=== PATIENT | male | born 1985 | race Caucasian/White ===

== ENCOUNTER 2017-07-26 20:53 | Emergency (ER) | payer OTHER ==
[~2017-07-26] VITALS: Ht 172.7 cm; Wt 97.1 kg
[2017-07-26 20:57] VITALS: BP_SYST 134
--- NOTE | 2017-07-26 21:22 | NUR ---
Patient to ER bed 06 to gown for evaluation. Side rails up.
[2017-07-26] MEDS ORDERED: NACL 0.9% 1,000 ML IV ONE (21:25)
--- NOTE | 2017-07-26 21:25 | NUR ---
Dr Wolf at bedside examining patient
[2017-07-26] MEDS ORDERED: methylPREDNISolone SOD SUCC/PF 62.5 MG/ML VIAL IVP ONE (21:30)
[2017-07-26] MEDS ORDERED: DIPHENHYDRAMINE INJ 50 MG/ML VIAL IVP ONE (21:30)
[2017-07-26] MEDS ORDERED: FAMOTIDINE PF 20 MG/2 ML VIAL IVP ONE (21:30)
[2017-07-26] MEDS ORDERED: EPINEPHrine JECT 1 MG/10 ML SYR SUBCUT ONE (21:30)
--- NOTE | 2017-07-26 21:30 | NUR ---
PT PRESENTS TO THE ED C/O REDNESS AND HIVES D/T ALLERGIC REACTION AFTER DINNER TONIGHT. PT STATES HE TRIED "JOSE SOUP" FOR THE FIRST TIME DURING BREAK AT WORK. 30 MIN LATER, HE DEVELOPED HIVES OVER HIS BODY. PT STATES HE FEELS ITCHY ALL OVER AND HIS EYES ARE BURNING. ERYTHEMA AND HIVES PRESENT ON FACE, CHEST, ARMS, LEGS, ABDOMEN. PT DENIES SOB, PAIN, N/V DAVID. SISTER AT BEDSIDE. NO OTHER INJURIES/COMPLAINTS PER PT/NOTED.
[2017-07-26] MEDS ORDERED: EPINEPHrine 1 MG/ML AMP SUBCUT ONE (21:45)
--- NOTE | 2017-07-26 21:48 | NUR ---
MEDICATION ADMINISTERED. PT SAMI WELL. NO ADVERSE REACTIONS NOTED.
--- NOTE | 2017-07-26 22:15 | NUR ---
WARM BLANKET PROVIDED PER PT REQUEST. PT LAYING COMFORTABLY IN BED. REDNESS AND HIVES HAVE DECREASED. PT DENIES SOB AND ITCHING. SISTER AT BEDSIDE. WILL CONTINUE TO MONITOR.
--- NOTE | 2017-07-26 22:35 | NUR ---
PT AMBULATED WITH STEADY GAIT TO BATHROOM TO PROVIDE URINE SAMPLE.
[2017-07-26 22:53] LABS: BILIRUBIN,URINE NEGATIVE (NEGATIVE); BLOOD, URINE NEGATIVE (NEGATIVE); CLARITY/URINE CLEAR (CLEAR); COLOR,URINE YELLOW (YELLOW); GLUCOSE,URINE NEGATIVE (NEGATIVE); KETONES,URINE NEGATIVE (NEGATIVE); LEUKOCYTE ESTERASE ,URINE NEGATIVE (NEGATIVE); NITRITE, URINE NEGATIVE (NEGATIVE); PH,URINE 5.5 (5.0-8.0); PROTEIN URINE NEGATIVE (NEGATIVE); UROBILINOGEN,URINE 0.2 (0.2-1.0)
[2017-07-26 22:59] VITALS: BP_SYST 134
--- NOTE | 2017-07-26 22:59 | NUR ---
Patient given written and verbal discharge instructions and verbalizes understanding. ER MD discussed with patient the results and treatment provided. Patient in stable condition. ID arm band removed. IV catheter removed intact and dressing applied, no active bleeding. Rx of Benadryl and prednisone given. Patient educated on pain management and to follow up with PMD. Pain Scale 0/10. Opportunity for questions provided and answered.
== END 2017-07-26 22:59 | disposition home or self-care (01) ==
LOC: SED 20:53
DX: T78.1XXA Other adverse food reactions, not elsewhere classified, initial encounter (principal); R21 Rash and other nonspecific skin eruption; X58.XXXA Exposure to other specified factors, initial encounter
CPT/HCPCS: 81003; 96361; 96372; 96374; 96375; 99284; J0171; J1200; J2930; J3490; J7030

== ENCOUNTER 2019-09-22 21:00 | Emergency (ER) | payer OTHER ==
[~2019-09-22] VITALS: Ht 172.7 cm; Wt 97.1 kg
[2019-09-22 21:34] VITALS: BP_SYST 119
--- NOTE | 2019-09-22 22:20 | NUR ---
Patient to ER bed 5 to gown for evaluation. Side rails up. Report given to Nora MONTERO.
--- NOTE | 2019-09-22 22:26 | NUR ---
ER Dr. Garcia at bedside examining patient.
--- NOTE | 2019-09-22 22:32 | NUR ---
Pt AAOx4 ambulated into ED c/o R testicle pain and swelling since this morning. Pt took advil with mild relief. No discharge/bleeding noted. No other injuries/complaints per pt/noted. Will continue to monitor.
--- NOTE | 2019-09-22 22:56 | NUR ---
Patient given written and verbal discharge instructions and verbalizes understanding. ER MD Garcia discussed with patient the results and treatment provided. Patient in stable condition. ID arm band removed. Rx of Cipro, Naprosyn given. Patient educated on pain management and to follow up with PMD. Pain Scale 0. Opportunity for questions provided and answered. Medication side effect fact sheet provided.
[2019-09-22 22:57] VITALS: BP_SYST 124
== END 2019-09-22 22:56 | disposition home or self-care (01) ==
LOC: SED 21:00
DX: N45.1 Epididymitis (principal)
CPT/HCPCS: 76870-TC; 99284

== ENCOUNTER 2024-05-29 09:25 | Emergency (ER) | payer MEDICAID, OTHER ==
[~2024-05-29] VITALS: Ht 175.3 cm; Wt 78.9 kg
[2024-05-29 09:34] VITALS: BP_SYST 120; PULSE 109; RESP 16; TEMP 98; O2SAT 99
[2024-05-29 10:01] LABS: BILIRUBIN,URINE NEGATIVE (NEGATIVE); BLOOD, URINE NEGATIVE (NEGATIVE); CLARITY/URINE CLEAR (CLEAR); COLOR,URINE YELLOW (YELLOW); GLUCOSE,URINE TRACE (NEGATIVE); KETONES,URINE NEGATIVE (NEGATIVE); LEUKOCYTE ESTERASE ,URINE NEGATIVE (NEGATIVE); NITRITE, URINE NEGATIVE (NEGATIVE); PROTEIN URINE NEGATIVE (NEGATIVE)
[2024-05-29] MEDS: IBUPROFEN 600 MG TABLET PO ONE (10:02)
[2024-05-29] MEDS ORDERED: DOXY100C PO (11:10)
[2024-05-29] MEDS ORDERED: TRAM50TA2 PO (11:11)
[2024-05-29] MEDS: cefTRIAXone 1 GM VIAL IM ONE (11:22)
[2024-05-29 11:48] VITALS: BP_SYST 114; PULSE 95; RESP 20; TEMP 97; O2SAT 98
== END 2024-05-29 11:49 | disposition home or self-care (01) ==
LOC: SED 09:25
DX: N45.2 Orchitis (principal); Z79.899 Other long term (current) drug therapy; Z79.2 Long term (current) use of antibiotics
CPT/HCPCS: 99285; 81001; 36415; 76870; 96372; 87491; 81003; J0696